=== PATIENT | female | born 1950 | race Caucasian/White ===

== ENCOUNTER → 2016-12-28 | Outpatient (CLI) | payer MEDICARE ==
[~2016-12-28] MED LIST: ALEN70TA3 PO; CHOL20002 PO; CITA40TA12 PO; VITA1TAB19 PO; [UNRECOGNIZED DRUG - OTHER] PO
== END | disposition home or self-care (01) ==
LOC: STAR 07:57
PROVIDERS: ATTEND Orthopaedic Surgery
DX: Z01.818 Encounter for other preprocedural examination (principal); M19.011 Primary osteoarthritis, right shoulder; M81.0 Age-related osteoporosis without current pathological fracture; Z79.899 Other long term (current) drug therapy
CPT/HCPCS: 81001; 87081; 87086; 93005

== ENCOUNTER 2017-01-03 08:00 | Inpatient (IN) | payer MEDICARE ==
[2016-12-28 08:22] VITALS: BP 119/81
[~2017-01-03] VITALS: Ht 166.4 cm; Wt 70.0 kg
[~2017-01-03 08:00] MED LIST changes: +BUPIVACAINE/PF 0.5% ONE
[2017-01-03] MEDS ORDERED: VANCOMYCIN PER PHARMACY MC PRN (11:00)
[2017-01-03] MEDS ORDERED: VANCOMYCIN 1,400 MG in SODIUM CHLORIDE 0.9% 250 ML IV ONE (11:30)
[2017-01-03] MEDS ORDERED: ANTIBIOTICS FOR UTI PO (11:36)
[2017-01-03] MEDS ORDERED: FENTANYL PF 100 MCG/2ML ONE ×3 (11:49→15:10)
[2017-01-03] MEDS ORDERED: MIDAZOLAM 1 MG/ML, 2ML ONE (11:49)
[2017-01-03] MEDS ORDERED: LIDOCAINE 1%, 2ML SQ PRN (12:00)
[2017-01-03] MEDS: D5%-0.45% NACL 1,000 ML IV SCH ×2 (12:51→19:54)
[2017-01-03] MEDS ORDERED: CLINDAMYCIN 150 MG/ML, 6ML ONE (12:56)
[2017-01-03] MEDS ORDERED: ONDANSETRON 2MG/ML, 2ML IV PRN (13:00)
[2017-01-03] MEDS ORDERED: morphine SULFATE 10 MG/ML, 1ML IV PRN (13:00)
[2017-01-03] MEDS ORDERED: ZOLPIDEM 5MG TABLET PO PRN (13:00)
[2017-01-03] MEDS ORDERED: LACTATED RINGERS 1,000 ML IV SCH (13:00)
[2017-01-03] MEDS ORDERED: BISACODYL 10 MG SUPP PR PRN (13:00)
[2017-01-03] MEDS ORDERED: DIPHENHYDRAMINE 25 MG CAPSULE PO PRN (13:00)
[2017-01-03] MEDS ORDERED: MAGNESIUM HYDROXIDE 8%, 30ML UDC PO PRN (13:00)
[2017-01-03] MEDS ORDERED: PROMETHAZINE 25 MG/ML, 1ML IM PRN (13:00)
[2017-01-03] MEDS ORDERED: SENNA/DOCUSATE TABLET PO PRN (13:00)
[2017-01-03] MEDS: CEFAZOLIN PMX 1GM/50ML 50 ML IVPB SCH ×2 (13:00→21:16)
[2017-01-03] MEDS ORDERED: LORazepam 2 MG/ML, 1ML IV PRN (13:00)
[2017-01-03] MEDS ORDERED: NICOTINE 21 MG/24 HR PATCH.TD24 TD SCH (13:00)
[2017-01-03] MEDS ORDERED: CEFAZOLIN 1,000 MG ONE (13:12)
[2017-01-03] MEDS ORDERED: SUCCINYLCHOLINE 20 MG/ML, 10ML ONE (13:12)
[2017-01-03] MEDS ORDERED: DEXAMETHASONE 4 MG/ML, 1ML ONE (13:12)
[2017-01-03] MEDS ORDERED: EPHEDRINE 50 MG/ML, 1ML ONE (13:12)
[2017-01-03] MEDS ORDERED: PROPOFOL 10 MG/ML, 20ML ONE (13:12)
[2017-01-03] MEDS ORDERED: ONDANSETRON 2MG/ML, 2ML ONE (13:12)
[2017-01-03] MEDS ORDERED: PHENYLEPHRINE 10 MG/ML ONE (13:12)
[2017-01-03] MEDS ORDERED: HYDROcodone/APAP 7.5-325MG/15ML UDC PO PRN (14:30)
[2017-01-03] MEDS ORDERED: METOCLOPRAMIDE 5 MG/ML, 2ML IV PRN (14:30)
[2017-01-03] MEDS ORDERED: PROMETHAZINE 25 MG/ML, 1ML IV PRN (14:30)
[2017-01-03] MEDS ORDERED: LORazepam 2 MG/ML, 1ML IVPush PRN (14:30)
[2017-01-03] MEDS ORDERED: LABETALOL 5MG/ML, 20ML IV PRN (14:30)
[2017-01-03] MEDS ORDERED: ONDANSETRON 2MG/ML, 2ML IVPush PRN (14:30)
[2017-01-03] MEDS ORDERED: hydrALAzine 20 MG/ML, 1ML IV PRN (14:30)
[2017-01-03] MEDS ORDERED: ALBUTEROL/IPRATROPIUM 2.5MG/0.5MG, 3 ML NPPB PRN (14:30)
[2017-01-03] MEDS ORDERED: MIDAZOLAM 1 MG/ML, 2ML IV PRN (14:30)
[2017-01-03] MEDS ORDERED: MEPERIDINE/PF 25MG/0.5ML IVPush PRN (14:30)
[2017-01-03] MEDS ORDERED: HYDROmorphone 1 MG/ML, 1ML IV PRN (14:30)
[2017-01-03] MEDS ORDERED: DIAZEPAM 5 MG/ML, 2ML IVPush PRN (14:30)
[2017-01-03] MEDS ORDERED: FENTANYL PF 100 MCG/2ML IV PRN (14:30)
[2017-01-03] MEDS: HYDROcodone/APAP 10/325 MG TABLET PO SCH ×3 (15:00→23:00)
[2017-01-03] MEDS ORDERED: HYDROcodone/APAP 7.5-325MG/15ML UDC ONE (15:10)
[2017-01-03] MEDS: KETOROLAC 30 MG/1 ML IV SCH (17:58)
[2017-01-03 19:15] VITALS: BP 110/72
[2017-01-03] MEDS ORDERED: ANTIBIOTICS FOR UTI PO SCH (21:00)
[2017-01-03] MEDS: DOCUSATE 100 MG CAPSULE PO SCH (21:19)
[2017-01-03 23:03] VITALS: BP 107/63
[2017-01-04] MEDS: KETOROLAC 30 MG/1 ML IV SCH ×2 (02:34→10:00)
[2017-01-04] MEDS: HYDROcodone/APAP 10/325 MG TABLET PO SCH ×3 (02:37→09:22)
[2017-01-04 02:47] VITALS: BP 98/62
[2017-01-04] MEDS: CEFAZOLIN PMX 1GM/50ML 50 ML IVPB SCH (05:20)
[2017-01-04] MEDS: DOCUSATE 100 MG CAPSULE PO SCH (07:42)
[2017-01-04 07:52] VITALS: BP 100/67
[2017-01-04] MEDS ORDERED: PNEUMOCOCCAL 23 VACCINE IM-VACC ONE (08:00)
[2017-01-04] MEDS: D5%-0.45% NACL 1,000 ML IV SCH (08:51)
[2017-01-04] MEDS ORDERED: CHOLECALCIFEROL 1,000 UNIT TABLET PO SCH (09:00)
[2017-01-04] MEDS ORDERED: CITALOPRAM 20 MG TABLET PO SCH (09:00)
[2017-01-04] MEDS ORDERED: MULTIVITS,STRESS FORMULA 1 TABLET PO SCH (09:00)
[2017-01-04 09:47] VITALS: BP 94/60
== END 2017-01-04 09:50 | disposition home or self-care (01) | DRG 483 ==
LOC: ORIP 10:27 → EDSTATUS 12:45 → 4NOR 16:46
PROVIDERS: ADMIT Orthopaedic Surgery; ATTEND Orthopaedic Surgery
PROC: 0LS30ZZ Reposition Right Upper Arm Tendon, Open Approach (ICD-10-PCS; 2017-01-03)
PROC: 0RRJ0JZ Replacement of Right Shoulder Joint with Synthetic Substitute, Open Approach (ICD-10-PCS; principal; 2017-01-03 14:00)
DX: M19.011 Primary osteoarthritis, right shoulder (principal); F32.9 Major depressive disorder, single episode, unspecified; F17.210 Nicotine dependence, cigarettes, uncomplicated; M75.21 Bicipital tendinitis, right shoulder; M81.0 Age-related osteoporosis without current pathological fracture; Z96.642 Presence of left artificial hip joint; Z98.1 Arthrodesis status; Z82.49 Family history of ischemic heart disease and other diseases of the circulatory system; Z98.51 Tubal ligation status; Z90.49 Acquired absence of other specified parts of digestive tract; Z88.6 Allergy status to analgesic agent
CPT/HCPCS: 90732; C1713; C1776; J0690; J1100; J1885; J2250; J2405; J2704; J3010; J3370; J3490; J0330; J2370; J7050; J7120

== ENCOUNTER 2019-09-21 08:31 | Emergency (ER) | payer MEDICARE ==
[~2019-09-21] VITALS: Ht 160 cm; Wt 71.4 kg
[~2019-09-21 08:31] MED LIST changes: +ANTIBIOTICS FOR UTI PO; -BUPIVACAINE/PF 0.5% ONE; -CHOL20002 PO; +CHOL200052 PO
[2019-09-21] MEDS ORDERED: MORPHINE SULFATE 4 MG/ML, 1ML IVPush PRN ×2 (09:00→11:30)
[2019-09-21] MEDS ORDERED: HYDROcodone/APAP 7.5-325MG/15ML UDC PO ONE (09:26)
[2019-09-21] MEDS ORDERED: HYDROcodone/APAP 7.5-325MG/15ML UDC ONE (09:31)
[2019-09-21 09:41] LABS: ALANINE AMINOTRANSFERASE 37 U/L (12-78); ALBUMIN 3.3 g/dL (3.4-5.0); ANION GAP 8 mmol/L (5-15); CALCIUM 9.7 mg/dL (8.5-10.1); CHLORIDE 93 mmol/L (98-107); CREATININE 1.17 mg/dL (0.55-1.02)
[2019-09-21 09:43] LABS: ALKALINE PHOSPHATASE 66 U/L (45-117); BILIRUBIN,TOTAL 1.5 mg/dL (0.2-1.0); TOTAL PROTEIN 7.2 g/dL (6.4-8.2)
--- NOTE | 2019-09-21 09:47 | NUR ---
LATE ENTRY DUE TO PT CARE: PTS FRIEND/CAREGIVER AT BEDSIDE NOTFIED RN THAT PT IS ON HOSPICE AND DOES NOT WANT LABS/UA/IV, WOULD ONLY LIKE PALLIATIVE TREATMENT FOR SHOULDER PAIN, REQUESTING PO MEDICATIONS. NOTFIED. ORDERS FOR LABS/UA/IV MEDS CANCELLED AND ORAL LORTAB AND ICE PACK GIVEN. NOTFIED OF INCREASING SWELLING TO L MIDCLAVICLE, XRAYS NEGATIVE FOR FRACTURE. MD TO ASSESS.
[2019-09-21] MEDS ORDERED: SODIUM CHLORIDE FLUSH 10ML SYR IVF ONE ×2 (10:00→11:30)
[2019-09-21] MEDS ORDERED: ONDANSETRON 2MG/ML, 2ML IVPush ONE (10:00)
[2019-09-21] MEDS ORDERED: SODIUM CHLORIDE 0.9% 1,000ML IVBOLUS ONE (10:00)
[2019-09-21 10:08] LABS: MEAN CORPUSCULAR HEMOGLOBIN 25.4 pg (27.0-34.8); MEAN CORPUSCULAR HGB CONC 30.7 g/dL (32.4-35.8); MEAN CORPUSCULAR VOLUME 82.7 fL (80-100); MEAN PLATELET VOLUME 7.3 fL (7.4-10.4); PLATELET COUNT 290 x10^3/uL (130-400); RED BLOOD COUNT 5.91 x10^6/uL (3.82-5.3); RED CELL DISTRIBUTION WIDTH 22.8 % (9.6-15.2)
[2019-09-21 10:30] LABS: ANISOCYTOSIS 1+; BASOPHILS # (AUTO) 0.01 x10^3/uL (0-0.1); BASOPHILS % (AUTO) 0 % (0-1); EOSINOPHILS # (AUTO) 0.01 x10^3/uL (0-0.4); EOSINOPHILS % (AUTO) 0 % (1-7); LYMPHOCYTES % (AUTO) 7 % (22-44); MD MORPH REVIEW ONLY; MONOCYTES # (AUTO) 0.73 x10^3/uL (0.2-0.8); MONOCYTES % (AUTO) 9 % (2-9); NEUTROPHILS # (AUTO) 7.29 x10^3/uL (1.8-6.8); NEUTROPHILS % (AUTO) 84 % (42-75)
[2019-09-21 10:31] LABS: <PLATELET ESTIMATE> ADEQUATE; <PLT MORPHOLOGY> NORMAL PLT MORPH; HYPOCHROMIA 1+; OVALOCYTES 1+; POLYCHROMASIA 1+; TARGET CELLS 1+
--- NOTE | 2019-09-21 11:39 | NUR ---
TRAUMA RN: CODE 250 WAS CALLED TO ED CANOPY. PT DID NOT TOLLERATE ACTIVITY OF MOVING FROM WHEELCHAIR TO CAR. LIPS WERE DUSKY IN COLOR AND PT MIN RESPONSIVE. PT TRANSFERED FROM CAR TO RNEY BY RN X 2 MAX LEFT/TRANSFER AND WAS BROUGHT BACK TO ROOM 346. PT ON MONITORS AND LIPS PINK, PT RESPONSIVE TO VERBAL STIM AND FOLLOWS COMMANDS. DENIES PAIN. I SPOKE WITH JACQUELINE, PAPERHANGER AT [facility]. PLAN FOR [facility] TRANSPORT HOME AND DYKE NURSE TO MEET THEM AT HOME. [facility]. AT THIS TIME PT MOSTILY SLEEPING, VSS NOTED. PTS FRIEND AT BEDSIDE, POC DISCUSSED, FRIEND AGREES. CALL LIGHT W/I REACH, NEAL, RN UPDATED TO EVENTS
[2019-09-21 11:44] VITALS: BP 115/87
[2019-09-21] MEDS ORDERED: HYDROmorphone 1 MG/ML, 1ML INJ IM ONE (12:00)
--- NOTE | 2019-09-21 12:40 | NUR ---
KENISHA PHILLIPS NOTIFIED OF PTS DISCHARGE, RN TO MEET [facility] AT PTS HOME @[phone]
--- NOTE | 2019-09-21 13:07 | NUR ---
MILLY REQUESTING DNR/DNI PAPERWORK FOR TRANSPORT, PHONED [facility] AND THEY DO NOT HAVE A COPY. ТАТЬЯНА PORTILLO MD SPOKE WITH FAMILY ON PHONE WHO AGREES PT IS DNR/DNI, ORDER WRITTEN FOR TRANSPORT.
== END 2019-09-21 11:06 ==
LOC: ED 10:53
DX: J44.9 Chronic obstructive pulmonary disease, unspecified (principal); R55 Syncope and collapse; M25.512 Pain in left shoulder; R94.31 Abnormal electrocardiogram [ECG] [EKG]
CPT/HCPCS: 36415; 71045; 80053; 85025; 93005; 99285